=== PATIENT | female | born 2005 | race Caucasian/White ===

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

== ENCOUNTER 2025-01-07 12:26 | Outpatient (CLI) | payer OTHER, SELFPAY ==
--- OUTSIDE RECORDS SUMMARY | 2024-11-24 07:44 | XMS_ITS | Encounter Summary ---
Author Organization [facility] Address [address] [phone] Care Team Providers Care Electromedical Service Engineer Name Role Phone Miles Ashraf MD Primary Care Provider + [phone] Reason for Referral * Diagnostic Imaging (Routine) - Closed Specialty Diagnoses / Procedures Referred By Contac t Referred To Contact Radiology Diagnoses Maternal care for poor growth in third trimester, single or unspecified fetus Procedures [facility] Diagnostic [place] Veronika Thacker MD [address] [place] [address] Phone: tel: fax: [facility] PER DIAG [facility] [address] [place] [address] Phone: tel: Referral ID Status Reason Start Date Expiration Date Visits Re quested Visits Authorized [id number] Closed 11/08/2024 02/07/2026 1 1 Reason for Visit * Diagnostic Imaging (Routine) - Closed Specialty Diagnoses / Procedures Referred By Contac t Referred To Contact Radiology Diagnoses Maternal care for poor growth in third trimester, single or unspecified fetus Procedures [facility] Diagnostic [place] Veronika Thacker MD [address] [facility] [address] [place] [address] Phone: tel: fax: [facility] PER DI[facility] [address] [place] [address] Phone: tel: Referral ID Status Reason Start Date Expiration Date Visits Re quested Visits Authorized [id number] Closed 11/08/2024 02/07/2026 1 1 Encounter Details Date Type Department Care Team (Late st Contact Info) Description 11/24/2024 7:44 AM EDT - 11/24/2024 11:59 PM EDT Hospital Encounter [facility] [address] [place] [phone] Veronika Thacker MD [address] [facility] [address] [place] [address] Maternal care for poor growth in third [...] Procedure Name Priority Date/Time Associated Diagnosis Comments [facility] Routine 11/24/2024 8:20 AM EDT Maternal care for poor growth in third trimester, single or unspecified fetus documented in this encounter Results * Replaced by [facility] (11/24/2024 8:20 AM EDT) Anatomical Region Laterality Modality Ultrasound 11/24/2024 7:53 AM EDT Narrative 11/24/2024 8:44 AM EDT PAT NAME: TALI RAMEY MED REC#: [id number] DA: 2005 PAT GEND: F PAT TYPE: O EXAM PHI: [id number] REF PHYS CHIRAG BRANNON Comparison Studies The [...] EFW (oz) 12 oz EFW by: Hadlock ([id number]-OY-FL) Extended Cav. septi pel. tr 4.5 mm Dope House Operator Helper 5.6 mm CM 4.7 mm 2% Nicolaides [...] Normal Heart / Thorax 3-vessel view: Normal 6-nspatc-hjyyqwb view: normal Stomach: Appears normal Kidneys: Appears [...] Recommend 37 week delivery. Coding ======= Description: 76443-53 Follow Up Ultrasound Description: 47737-32 BPP without NST Description: 29341-87 Doppler Umbilical Artery Carrier Blower: Angela Iniguez RDMS Physician: Clint Ponce MD, FACOG Electronically signed by: Clint Ponce MD, FACOG at: 08:44 Procedure Note Clint Ponce MD - 11/24/2024 PAT NAME: TALI RAMEY MED REC#: [id number] DA: 2005 PAT GEND: F PAT TYPE: O EXAM PHI: [id number] REF PHYS CHIRAG BRANNON Comparison Studies The findings of this study are compared to the prior ultrasound studydated 11/05/24. Patient Status Outpatient Indication ======== IUGR. Vapes. Maternal Assessment Alpcnv843 cm Height (ft)4 ft Height (in)11 in Mhaimi95 kg Weight (lb)92 lb BMI18.55 kg/m Method ======= Transabdominal ultrasound examination ========= Lai . Number of fetuses: 1 Dating ====== GA by prior bqbggcxnva71 w + 5 d DEMETRIA by prior [...] (lb)3 lb EFW (oz)12 oz EFW by:Hadlock (XAF-[id number]-TX-FL) Extended Cav. septi pel. tr4.5 mm Vp5.6 mm CM4.7 mm 2% Nicolaides Head / Face / Neck Cephalic index0.75 5% Nicolaides Extremities / Bony Struc FL / BPD0.81 FL / HC0.21 FL / AC0.22 Other Structures VBJ746 bpm General Evaluation Cardiac activity present. FHR [...] LVOT view:Normal Heart / Thorax 3-vessel view:Normal 8-zihnvo-iacesno view:normal Stomach:Appears normal Kidneys:Appears normal Bladder:Appears normal [...] 2 weeks. Recommend 37 weekdelivery. Coding ======= Description:05735-64 Follow Up Ultrasound Description:62811-56 BPP without NST Description:27573-51 Doppler Umbilical Artery Carrier Blower: Angela Iniguez RDMS Physician: Clint Ponce MD, FACOG Electronically signed by: Clint Ponce MD, FACOG at: 08:44 us Veronika Thacker MD IMG US ORDERABLES Final Result documented in this encounter Visit Diagnoses Diagnosis Maternal care for poor growth in third trimester, single or unspecified fetus documented in this encounter Care Teams Electromedical Service Engineer Relationship Specialty Start Date End Date Miles Ashraf MD [address] [place] [address] [address] [place] [address] PCP - General Adolescent Medicine 11/02/24 documented as of this encounter
--- OUTSIDE RECORDS SUMMARY | 2024-11-24 08:00 | XMS_ITS | Encounter Summary ---
Author Organization [facility] Address [address] [place] [address] Care Team Providers Care Hands Parter Name Role Phone Miles Ashraf MD Primary Care Provider [phone] Reason for Visit * Reason Comments IUGR Encounter Details Date Type Department Care Team ([facility] st Contact Info) Description 11/24/2024 8:00 AM EDT Office Visit [facility] MATERNAL MEDICINE [address] [place] [phone] Elier Ponce MD [address] [facility] [address] [place] [address] Maternal care for poor growth in third [...] [facility] Elier Ponce MD, FACOG Maternal Medicine, [facility] documented in this encounter Plan of Treatment Not on file documented as of this encounter Visit Diagnoses Diagnosis Maternal care for poor growth in third trimester, single or unspecified fetus- Primary documented in this encounter Care Teams Hands Parter Relationship Specialty Start Date End Date Miles Ashraf MD [address] [place] [address] [place] [address] PCP - General Adolescent Medicine 11/02/24 documented as of this encounter
--- OUTSIDE RECORDS SUMMARY | 2024-12-06 18:45 | XMS_ITS | Encounter Summary ---
Author Organization Healthcare Address [address] [place] [address] Care Team Providers Care Clinical Data Research Name Role Phone Miles Ashraf MD Primary Care Provider [phone] Reason for Visit * Auth/Cert (Routine) Specialty Diagnoses / Procedures Referred By Contac t Referred To Contact Diagnoses premature rupture of membranes (PPROM) with unknown onset of labor Marline Redding DO [address] [address] Phone: tel: fax: [facility] [address] [place] [address] Phone: tel: fax: Referral ID Status Reason Start Date Expiration Date Visits Re quested Visits Authorized [id number] 1 1 Encounter Details Date Type Department Care Team (Late st Contact Info) Description 12/06/2024 6:45 PM EDT - 12/09/2024 2:58 PM EDT Hospital Encounter [facility] [address] [place] [address] Marline Redding DO [address] [address] Axel Patino MD [address] [address] Discharge Disposition: Home or Self [...] any time in the past 12 m [facility], were you homeless or living in a residential (including now)? 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 0 12/06/2024 CAGE Questionnaire Score 0 025 Utilities Answer Date Recorded In the past 12 months has th e [employer], gas, oil, or water [employer] threatened to shut off services in your [...] returns to a pre- state. Call your REFERENCE LIBRARIAN or come to OB triage at [facility] if: You are having heavy vaginal bleeding requiring more than 2 maxipads in 1-hour You are having new onset of headaches, blurry vision, chest pain, shortness of air, significant legswelling. Fever (temperature >100.4 F) Severe abdominal pain, nausea/vomiting Difficulty with urination Follow-up recommendations: If you had any blood pressure problems during your or labor, you should have a follow-up with your REFERENCE LIBRARIAN in 1-week to check your blood pressure. You should have a visit with your REFERENCE LIBRARIAN scheduled in 6-weeks. documented in this encounter Medications at Time of Discharge acetaminophen (Tylenol) 325 MG tablet Take 2 tablets by mouth every 6 hours as needed for pain. Under [facility] law, monthly prescriptions (30 days) [...] capsule by mouth daily. 60 capsule 5 hydrOXYzine HCl (Atarax) 25 MG tablet Take [...] for nausea or vomiting. 20 tablet 5 ferrous sulfate 325 (65 Fe) MG tablet Take 1 tablet by mouth daily with breakfast. 30 tablet 5 01/10/20 25 acetaminophen (Tylenol) 325 MG tablet Take 2 tablets by mouth every 6 hours as needed for pain. Under [place] law, monthly prescriptions (30 days) can be [...] Randolph MD - 12/09/2024 2:01 PM EDT [facility] AN OB POSTANALGESIA NOTE: OB Post Analgesia [...] EDT Signature only. * Progress Notes - Krsytin Beckforddeanne Rodriguez - 12/09/2024 10:42 AM EDT Case Management Adult Initial Progress Note Tali Cope 19 y.o. 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 No Insurance: Primary Visit Coverage Payer Plan Sponsor Code Group Number Group Name [employer] MEDICAID [employer] [place] Primary Visit Coverage Subscriber Subscriber ID Subscriber Name Subscriber N Subscriber Address [id number] TALI COPE [id number] [place] [address] Patient information: Primary Caregiver: Self Accompanied by/Relationship: Pt's Fiance (Delmer Silva) and NB (Jeannine Silva) available at bedside as support. Support System: Immediate family, Friends Daily Living Activities: Functional Status: Independent Living Arrangements: Spouse/Significant other, Children Type of Residence: Private residence [address] [place] [address] Smoker in the Home?: No Current DME: [...] DME Provider: N/A Living Will/Advance Directive/Power of Delimber Operator /Guardian: Unable to assess: No Have you [...] No Social Connections: Unknown (03/01/2023) Received from [facility] Family and Community Support Help with Day-to-Day Activities: Not on file Lonely or Isolated: Not on file Alcohol Use: Low Risk (12/06/2024) CAGE ASSESSMENT Cage unable to access: Not on file Cage max number of drinks: Not on file Cage Beverages a week: Not on file Cage Questionnaire cut down: 0 Cage questionnaire annoyed: 0 Cage questionnaire guilty: 0 Cage questionnaire eye body component engineer: 0 Cage Overall score: 0 Tobacco Use: Low Risk (11/05/2024) Received from [facility] Patient History Smoking Tobacco Use: Never Smokeless Tobacco Use: Never Passive Exposure: Not on file Financial Resource Strain: Not on file Depression: Not at risk (08/10/2021) PHQ-2 PHQ-2 Score: 2 Depression: Low Risk (12/08/2024) Franklin Depression Scale Last EPDS Total Score: 3 [...] reports living with her fiance and NB ([place] Berylguilherme Silva) in [place], [place]. SW confirmed the family's demographic information [...] as needed prior to discharge. Julian Beckford, SHUTTLECOCK ASSEMBLER, TOWER TECHNICIAN * Hospital Course - Lenora Muniz - [...] a baby's chart. NBN Follow-up Consult Note [facility] Patient Name: Sammie Cope Date: 12/09/2024 [...] Center Initiated by: Reviewed by WILL BarclayC, [facility] Date Initiated: 12/08/24 Patient Follow-up: Follow-up Needed [...] from the original note were not included. 38831 Storing Expressed Milk You can express your milk and store it in clean containers. Your family or a sitter can feed it to the baby. This way, your baby gets the benefits of your milk even when you can't be there at feedingtime. The guidelines below are based on guidelines from the CDC and the [place] [employer] Pediatric[employer] (AAP). Type of storage [...] mouth. Last Reviewed Date: 2023 00:00:00 ?? [id number] [employer]. All rights reserved. This information is not intended as a substitute for professional medical care. Always follow your healthcare professional's instructions. * Marcus HernandezBRUNO - Colleen Sharma RN - 12/09/2024 7:51 AM EDT Images from the original note were not included. 00463 Understanding Depression It?s common to feel tired [...] An online chat option is alsoavailable at https://[employer]Medallia. Lifeline is free and available 10/12. To learn more Find more information at: ? [employer] at www..net ? Office on Women's Health at www.womenshealth.gov Last Reviewed Date: 2024 00:00:00 ?? [id number] [employer]. All rights reserved. This information is not [...] with a nurse. [facility] (Triage) [facility] [address] [place] [address] [facility] Medical Office Building [address], [address] [place], [place] [id number] [facility] [address] [place], [place] [id number] Family Practice [address], Third Floor [address] [place], [place] [address] [facility] [address] [place] [address] [facility] Obstetrics & Gynecology [place] [address] [place] [address] [facility]stetrics [facility] Gyne[facility] [place] [address] [place], [place] [id number] * Marcus Saenz - Colleen Sharma RN - 12/09/2024 7:50 AM EDT Images from the original note were not included. 65863 : Caring for Yourself When you have [...] healthcare provider before taking any prescription or mecw-zgl-lvpvfoe medicines, herbs,or supplements. Comfy clothes Suggestions for [...] . Last Reviewed Date: 2023 00:00:00 ?? 4591-3685 [employer]. All rights reserved. This information is not intended as a substitute for professional medical care. Always follow your healthcare professional's instructions. * Marcus Saenz - Colleen Sharma RN - 12/09/2024 7:50 AM EDT Images from the original note were not included. 88486 Breast Care After A few days after [...] nipples, consult your healthcare provider or a talent acquisition consultant. They will make sure that your baby's [...] freely Last Reviewed Date: 2023 00:00:00 ?? [id number] [employer]. All rights reserved. This information is not intended as a substitute for professional medical care. Always follow your healthcare professional's instructions. * Marcus OnIR - Colleen Sharma RN - 12/09/2024 7:50 AM EDT Images from the original note were not included. 476 Beginning to Breastfeed: Fvrd-qx-Mtys What is rgac-dr-iqca? After , your nurse will clean and dry your baby. Your baby will then be placed on your chest utve-nm-mnoy right away. Your baby?s shoulders should be [...] the first time. Your baby will stay bhrw-os-holq with you for as long as you like after . If you get too sleepy, let your nurse know. Only you or your partner can do wlqj-pv-wngu with your baby these first few hours. Visitors may come in, but you must not pass your baby around during this time. This could cause your baby to get cold and then sick. Posk-dc-csor is a great way to remind your [...] also lowers your risk of depression. Being hune-qv-ffzh with your baby can help reduce your [...] feeding. ? Placing your baby in the sdcu-xo-ssuf position on your chest. This can help [...] to latch on correctly. [facility] can help with any breast feeding problems after you go home. * Marcus OnFHIR - Colleen Sharma RN - 12/09/2024 7:50 AM EDT Images from the original note were not included. 52806 After Delivery: When to Call the Healthcare [...] weeks after discharge. * [facility] - Colleen Sharma RN - 12/09/2024 7:50 AM EDT Images from the original note were not included. 29238 After a Vaginal After having a baby, [...] and anus), an ice pack can help. Juda care While still in the hospital or [...] home. Last Reviewed Date: 2017 00:00:00 ?? 4751-4227 [employer]. All rights reserved. This information is not [...] Miles Ashraf MD [address] [facility] / [place] [address] Referring provider name and address: No referring [...] 6 hours as needed for pain. Under [place] law, monthly prescriptions(30 days) can be refilled [...] Your Medications These medications were sent to [facility] [address] [place] [address] [address] [address] acetaminophen 325 MG tablet docusate sodium 250 [...] Lady Pryor MD PGY-2, Obstetrics and Gynecology [facility] Cosigned by Edgardo Ardon MD [...] García MD - 12/08/2024 5:09 PM EDT [facility] AN OB POSTANALGESIA NOTE: OB Post Analgesia [...] a baby's chart. NBN Follow-up Consult Note [facility] Patient Name: Sammie Cope Date: 12/08/2024 Admission Date: 12/07/2024 Weight of : 2120 [...] Pryor MD - 12/08/2024 7:11 AM EDT [facility] Daily Progress Note S: No [...] Contraception: undecided # Status - Viable Female infant # FEN/Prophylaxis - REG/HLIV - SCD???s Dispo: Continue inpatient management/Anticipate discharge on PPD 2. Patient care staffed with [facility] Attending, Dr. Ardon. For any questions or concerns regarding this patient's care, please call OB resident workroom at #[phone]. Lady Pryor MD Obstetrics & Gynecology, PGY-1 [facility] Cosigned by Edgardo Ardon MD [...] Flowsheets (Taken 12/08/2024 0012) Pain Management Interventions: fhmtli-max-hawkc dosing utilized Goal: Effective Urinary Elimination Outcome: Ongoing, Progressing * Note - Adilene Jackson RN - 12/07/2024 4:30 PM EDT This note was copied from a baby's chart. NBN Initial Consult Note [facility] Patient Name: Sammie Cope Date: 12/07/2024 Admission Date: 12/07/2024 Weight of : 2120 g Percent Weight Change Since : 0% Consultation: Reason for Consult: Initial assessment, Late LC to Mother's bedside to offer assistance [...] pump after I feed. Breast Pump: [facility] (Spectra and wearable Lansinoh breast pumps [...] Spontaneous ROM to Delivery Time: 2h 47m Juda Sex: Female Weight: 2120 g 1 Minute 5 Minute 10 Minute Totals: 9 9 Sammie Cope [[id number]] Delivery Providers Delivering clinician: Axel Patino MD Provider Role Sarah York MD Delivery Assist Paula Patino RN Delivery Nurse Jackie Blank MD Resident PGY-4 Eliane Hook, RN Registered Nurse Sofía Lee Scrub Nurse Delivery Details: Tali Cope, filomena 19 y.o. female delivered a viable Female with Apgars of 9 and 9 . Delivery was via Vaginal, Spontaneous with Epidural anesthesia. delivered in Vertex Right Occiput Anterior position. Anterior and posterior shoulders delivered without difficulty. After delayed cord clamping, the cord was clamped twice, cut and 3 vessels were noted. Intact placenta delivered at 12/07/2024 1:29 PM. Placental disposition was discarded. Fundal massageperformed and fundus found to be firm. Perineum, vagina, cervix were inspected, and the following lacerations were noted: Sammie Cope [[id number]] Lacerations Episiotomy: None Periurethral laceration?: Yes Periurethral [...] at 28 weeks as a [facility] from [facility] for concern for labor, short cervix and growth restriction. CE at that time was /-3. She received IR nifed and ANCS. On HD2 formal US revealed normal growth and a CL of 7mm. She follows with [facility] for her FGR. They suspect that this [...] mg, Oral, Every 4 hours PRN, Under [place] law, monthly prescriptions (30 days) can be [...] of labor. Please contact first-call provider on [employer] Secure Chat for questions or concerns. For emergencies [place] [phone]. Leonora Sun MD PGY-3 Obstetrics & Gynecology [...] Hold for add-ons 12/08/2024 8:03 AM EDT [facility] Comment:Auto resulted. Blood Venous blood specimen / Unknown 12/08/2024 4:40 AM EDT 12/08/2024 5:07 AM EDT us Axel Patino MD LAB BLOOD ORDERABLES Yasmin l Result Performing Organization Address [facility]/ZIP Co de Phone Number [facility] [address] [place] [address] * Hemoglobin and hematocrit, blood, AM Lab (12/08/2024 4:40 AM EDT) HGB 11.7 11.2 - 15.7 g/dL LAB HEMATOLOGY METHOD 12/08/2024 5:05 AM EDT [facility] HCT 35.3 34.0 - 45.0 % LAB HEMATOLOGY METHOD 12/08/2024 5:05 AM EDT [facility] Blood Venous blood specimen / Unknown Venipuncture / Unknown 12/08/2024 4:40 AM EDT 12/08/2024 4:55 AM EDT us Marline Gonzalezco DO LAB BLOOD ORDERABLES Final R esult Performing Organization Address [facility] Co de Phone Number [facility] [address] [place] [address] * Urine Culture (12/06/2024 7:09 PM EDT) Culture No growth at day 1 12/07/2024 3:07 PM EDT [facility] Urine Urine specimen from urinary conduit / Unknown Non-blood Collection / Unknown 12/06/2024 7:09 PM EDT 12/06/2024 7:27 PM EDT us Marline Quezada Miladis DO LAB MICROBIOLOGY - GENERAL O RDERABLES Final Result Performing Organization Address City/[facility] Co de Phone Number [facility] [address] [place] [address] * (ABNORMAL) Urinalysis with reflex microscopic (12/06/2024 7:09 PM EDT) Color, Urine Yellow LAB URINALYSIS - AUTOMATED METHOD 12/06/2024 7:23 PM EDT [facility] Clarity, Urine Clear LAB URINALYSIS - AUTOMATED METHOD 12/06/2024 7:23 PM EDT [facility] Spec Harriet, Urine 1.006 1.005 - 1.030 LAB URINALYSIS - AUTOMATED METHOD 12/06/2024 7:23 PM EDT [facility] pH, Urine 7.0 5.0 - 8.0 LAB URINALYSIS - AUTOMATED METHOD 12/06/2024 7:23 PM EDT [facility] Protein, Urine Negative Negative mg/dL LAB URINALYSIS - AUTOMATED METHOD 12/06/2024 7:23 PM EDT [facility] Glucose, Urine Negative Negative mg/dL LAB URINALYSIS - AUTOMATED METHOD 12/06/2024 7:23 PM EDT [facility] Ketones, Urine 15(A) Negative mg/dL LAB URINALYSIS - AUTOMATED METHOD 12/06/2024 7:23 PM EDT [facility] Blood, Urine Negative Negative LAB URINALYSIS - AUTOMATED METHOD 12/06/2024 7:23 PM EDT [facility] Bilirubin, Urine Negative Negative LAB URINALYSIS - AUTOMATED METHOD 12/06/2024 7:23 PM EDT [facility] Urobilinogen, Urine 0.2 0.2 to 1.0 mg/dL LAB URINALYSIS - AUTOMATED METHOD 12/06/2024 7:23 PM EDT [facility] Leukocytes, Urine Negative Negative LAB URINALYSIS - AUTOMATED METHOD 12/06/2024 7:23 PM EDT [facility] Nitrite, Urine Negative Negative LAB URINALYSIS - AUTOMATED METHOD 12/06/2024 7:23 PM EDT [facility] Urine Urine specimen from urinary conduit / Unknown Non-blood Collection / Unknown 12/06/2024 7:09 PM EDT 12/06/2024 7:17 PM EDT us Marline Redding DO LAB URINE ORDERABLES Final R esult [facility] [address] [place] [address] * Rubella Antibody IgG (12/06/2024 7:06 PM EDT) Rubella Antibody IgG Equivocal Negative 12/07/2024 10:56 AM EDT [facility] Comment: Rubella IgG Result Interpretation: Negative: [...] EDT 12/06/2024 7:17 PM EDT Marline A [employer] DO LAB BLOOD ORDERABLES Final R esult Performing Organization Address City/[facility]/ZIP Co de Phone Number [facility] [address] [place] [address] * Hepatitis B surface antigen (12/06/2024 7:06 PM EDT) Pathologist [facility] Hepatitis B Surf Antigen Negative Negative 12/06/2024 8:52 PM EDT [facility] Blood Venous blood specimen / Unknown Venipuncture / Unknown 12/06/2024 7:06 PM EDT 12/06/2024 7:17 PM EDT Marline A Miladis DO LAB BLOOD ORDERABLES Final R esult [facility] [address] [place] [address] * (ABNORMAL) CBC and differential (12/06/2024 7:06 PM EDT) Pathologist [facility] WBC Count 14.26(H) 3.70 - 10.30 10*3/uL LAB HEMATOLOGY METHOD 12/06/2024 7:24 PM EDT [facility] RBC Count 3.65(L) 3.90 - 5.20 10*6/uL LAB HEMATOLOGY METHOD 12/06/2024 7:24 PM EDT [facility] HGB 12.2 11.2 - 15.7 g/dL LAB HEMATOLOGY METHOD 12/06/2024 7:24 PM EDT [facility] HCT 34.3 34.0 - 45.0 % LAB HEMATOLOGY METHOD 12/06/2024 7:24 PM EDT [facility] Platelet Count 235 155 - 369 10*3/uL LAB HEMATOLOGY METHOD 12/06/2024 7:24 PM EDT [facility] MCV 94 79 - 98 fL LAB HEMATOLOGY METHOD 12/06/2024 7:24 PM EDT [facility] MCH 33.4(H) 26.0 - 32.0 pg LAB HEMATOLOGY METHOD 12/06/2024 7:24 PM EDT [facility] MCHC 35.6(H) 30.7 - 35.5 g/dL LAB HEMATOLOGY METHOD 12/06/2024 7:24 PM EDT [facility] RDW 12.1 11.5 - 14.5 % LAB HEMATOLOGY METHOD 12/06/2024 7:24 PM EDT [facility] MPV 10.3 8.8 - 12.5 fL LAB HEMATOLOGY METHOD 12/06/2024 7:24 PM EDT [facility] nRBC 0.0 <=0.0 per 100 WBCs LAB HEMATOLOGY METHOD 12/06/2024 7:24 PM EDT [facility] Differential Type Automated LAB HEMATOLOGY METHOD 12/06/2024 7:24 PM EDT [facility] Neutrophils % 79 % LAB HEMATOLOGY METHOD 12/06/2024 7:24 PM EDT [facility] Lymphocytes % 13 % LAB HEMATOLOGY METHOD 12/06/2024 7:24 PM EDT [facility] Monocytes % 6 % LAB HEMATOLOGY METHOD 12/06/2024 7:24 PM EDT [facility] Eosinophils % 1 % LAB HEMATOLOGY METHOD 12/06/2024 7:24 PM EDT [facility] Basophils % 0 % LAB HEMATOLOGY METHOD 12/06/2024 7:24 PM EDT [facility] Immature Granulocytes % 1 % LAB HEMATOLOGY METHOD 12/06/2024 7:24 PM EDT [facility] Neutrophils Absolute 11.23(H) 1.60 - 6.10 10*3/uL LAB HEMATOLOGY METHOD 12/06/2024 7:24 PM EDT [facility] Lymphocytes Absolute 1.85 1.20 - 3.90 10*3/uL LAB HEMATOLOGY METHOD 12/06/2024 7:24 PM EDT [facility] Monocytes Absolute 0.89 0.30 - 0.90 10*3/uL LAB HEMATOLOGY METHOD 12/06/2024 7:24 PM EDT [facility] Eosinophils Absolute 0.11 0.00 - 0.50 10*3/uL LAB HEMATOLOGY METHOD 12/06/2024 7:24 PM EDT [facility] Basophils Absolute 0.05 0.00 - 0.10 10*3/uL LAB HEMATOLOGY METHOD 12/06/2024 7:24 PM EDT [facility] Immature Granulocytes Absolute 0.13(H) 0.00 - 0.06 10*3/uL LAB HEMATOLOGY METHOD 12/06/2024 7:24 PM EDT [facility] Blood Venous blood specimen / Unknown Venipuncture / Unknown 12/06/2024 7:06 PM EDT 12/06/2024 7:17 PM EDT Narrative [facility] - 12/06/2024 7:24 PM EDT Therapeutic decision making should be based on absolute values, rather than percentages. us Marline Redding DO LAB BLOOD ORDERABLES Final R esult [facility] [address] [place] [address] * Treponema Pallidum (Syphilis) Antibodies with Reflex to RPR and RPR Titer (Those with NO known Syphilis) (12/06/2024 7:06 PM EDT) Syphilis Antibody (IgG+IgM) Nonreactive Nonreactive 12/06/2024 8:52 PM EDT [facility] Comment:Nonreactive. No sero logic evidence of syphilis. No follow-up necessary unless clinically indicated (e.g., early syphilis). Blood Venous blood specimen / Unknown Venipuncture / Unknown 12/06/2024 7:06 PM EDT 12/06/2024 7:17 PM EDT Marline Filomena Miladis DO LAB BLOOD ORDERABLES Final R esult Performing Organization Address City/[facility]/ZIP Co de Phone Number [facility] [address] [place] [address] * (ABNORMAL) OB Panel Pre-Eclampsia, only if hypertensive (12/06/2024 7:06 PM EDT) Uric Acid, Plasma 3.0(L) 3.1 - 7.1 mg/dL 12/06/2024 7:46 PM EDT [facility] Creatinine, Plasma 0.33(L) 0.60 - 1.10 mg/dL 12/06/2024 7:46 PM EDT [facility] ALT, Plasma 9(L) 10 - 35 U/L 12/06/2024 7:46 PM EDT [facility] AST, Plasma 19 10 - 35 U/L 12/06/2024 7:46 PM EDT [facility] LDH, Plasma 196 116 - 250 U/L 12/06/2024 7:46 PM EDT [facility] eGFRcr 153.4 mL/min/1.7 3m*2 12/06/2024 7:46 PM EDT [facility] Comment:Reported eGFRcr in m L/min/1.73m2 is based the CKD-EPI 2020 equation that does not use a race coefficient. Blood Venous blood specimen / Unknown Venipuncture / Unknown 12/06/2024 7:06 PM EDT 12/06/2024 7:17 PM EDT us Marline Quezada Miladis DO LAB BLOOD ORDERABLES Final R esult [facility] [address] [place] [address] * Type and Screen (12/06/2024 7:06 PM [...] ORDERABL ES Final Result BLOOD BANK [address] documented in this encounter Visit Diagnoses [...] documented as of this encounter Care Teams Clinical Data Research Relationship Specialty Start Date End Date Miles Ashraf MD [address] [place] [address] [place] [address] PCP - General 09/30/20 documented as of this encounter
--- OUTSIDE RECORDS SUMMARY | 2024-12-07 01:01 | XMS_ITS | Encounter Summary ---
Author Organization Healthcare Address [address] [place] [address] Care Team Providers Care Radio Program Checker Name Role Phone Miles Ashraf MD Primary Care Provider + [phone] Reason for Visit * Auth/Cert (Routine) Specialty Diagnoses / Procedures Referred By Contac t Referred To Contact Diagnoses premature rupture of membranes (PPROM) with unknown onset of labor Marline Redding, DO [address] [address] Phone: tel: fax: [facility] [address] [place] [phone] Phone: tel: fax: Referral ID Status Reason Start Date Expiration Date Visits Re quested Visits Authorized [id number] 1 1 Encounter Details Date Type Department Care Team (Late st Contact Info) Description 12/07/2024 1:01 AM EDT Anesthesia Event [facility] [address] [place] [address] Jose Cortez, DO [address] [place] [address] Anesthesia Record Procedure Summary Procedure Name Responsible Anesthesiologist Anesthesia Start Time Anesthesia Stop Time Labor Consult Events No events on file. Meds * Agents No agents on file. * Blood No blood administrations on file. Lines, Drains, and Airways No LDAs on file. documented in this encounter Social History Tobacco Use Types Packs/Day Years Used Date Smoking Tobacco: Never Smokeless Tobacco: Never Alcohol Use Standard Drinks/Week Comments Never 0 (1 standard drink = 0.6 oz pur e alcohol) PHQ-2 Answer Date Recorded Patient Health Questionnaire-2 Score 2 08/10/2021 [place] Depression Scale Answer Date Recorded [place] Depression Scale Total 3 12/08/2024 The thought [...] drink first t diandra in the morning (EYE-PRINTED CIRCUIT BOARDS CONTACT PRINTER) to steady your nerves or to get rid of a hangover? 0 12/06/2024 CAGE Questionnaire Score 0 025 Comments Yes Sex and Gender Information Value Date Recorded Sex Assigned at Not on file Legal Sex Female 8:57 PM EDT Gender Identity Not on file Sexual Orientation Not on file documented as of this encounter Functional Status * Calculated C-SSRS Risk Score (Lifetime/Recent) Answer Date of Assessment Author No Risk Indicated 12/06/2024 6:54 PM EDT Marline Caro RN * Question Answer Date of Assessment Author 1. Wish to be (Past 1 Month) No 025 6:54 PM EDT Marline Caro RN 2. Non-Specific Active Suici cristine Thoughts (Past 1 Month) No 12/06/2024 6:54 PM EDT Marline Caro RN 6. Suicidal Behavior (Lifetime) No 6:54 PM EDT Marline Caro RN documented as of this encounter Miscellaneous Notes * Anesthesia IP Labor Consult - Jose Cortez DO - 12/06/2024 9:51 PM EDT Patient: Abbe Ramey Procedure Information Date: 12/06/24 Procedure: Labor Consult Ms. Ramey is a 19 year old F who presents at 35w3d with PPROM and now IOL. Her only obstetric history with this is IUGR (EFW 2nd percentile). She denies any history of asthma, HTN,bleeding/clotting disorders, musculoskeletal disorders, or back surgeries. She denies taking any blood thinners. She does report a history of tachycardia and palpitations at baseline, for which she saw a peds compliance investigator in the past. She wore a holter monitor without any clear underlying cause. She does have a history of prior eating disorder requiring hospitalization in the past. 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 Current Obstetric History (-) history of DVT OB History 2 Para Term AB 1 Living SAB 1 IAB Ectopic Multiple Live Births Social History Socioeconomic History Marital status: Significant Other Spouse name: Not on file Number of children: 0 Years of education: in 10th grade Highest education level: Not on file Occupational History Not on file Tobacco Use Smoking status: Never Smokeless tobacco: Never Vaping Use Vaping status: Some Days Substances: Nicotine Devices: Pre-filled or refillable cartridge, Refillable tank Substance and Sexual Activity Alcohol use: Never Drug use: Never Sexual activity: Yes Partners: Male control/protection: OCP Comment: Patient states she was taking OCPs when she conceived Other Topics Concern Not on file Social History Narrative Lives with grandmother, stepfather. Household includes: sister Occasional caffeine consumption. Social Drivers of Health Financial Resource Strain: Not on file Food Insecurity: Not on file Transportation Needs: Not on file Physical Activity: Not on file Stress: Not on file Social Connections: Unknown (03/01/2023) Received from [facility] Family and Community Support Help with Day-to-Day Activities: Not on file Lonely or Isolated: Not on file Intimate Partner Violence: Unknown (03/01/2023) Received from [facility] Abuse Screen Unsafe at Home or Work/School: Not on file Feels Threatened by Someone?: Not on file Does Anyone Keep You from Contacting Others or Doint Things Outside the Home?: Not on file Physical Sign of Abuse Present: Not on file Housing Stability: Unknown (03/01/2023) Received from [facility] Housing Stability Current Living Arrangements: Not on file Potentially Unsafe Housing Conditions: Not on file Labs in last 18 hours CBC WBC 14.26 (H) Hb 12.2 Plt 235 Hct 34.3 ANC 11.23 (H) INR ??, PTT ??, Anti-Xa ?? BMP Na ?? Cl ?? BUN ?? Glu ?? K ?? Co2 ?? Cr 0.33 (L) Ca ?? iCa ?? Mg ??, Phos ?? Lactate ?? LFT AST 19 AlkPhos ?? T Prot ?? ALK 9 (L) Bili ?? Alb ?? D.Bili ?? Relevant Problems No relevant active problems Clinical information reviewed: Allergies ROS Anesthesia: Does not have history of previous anesthesia. Cardiovascular: Does not have angina. no hypertension: Does not have chest pain. Cardio additional comments: Prior history of palpitations and tachycardia. . Respiratory: no asthma: no COPD: Respiratory ROS additional comments: Vapes HEENT: Does not have chipped teeth, loose teeth or missing teeth. Neurological: no seizures: Did not have a cerebrovascular accident. Musculoskeletal: Does not have cervical spine limited mobility. Gastrointestinal: GERD:Does not have cirrhosis. Genitourinary: Does not have renal disease. Hematological/Lymphatic: History of no DVT. History of no pulmonary embolism. Endocrine/Metabolic: does not have diabetes mellitus. Does not have thyroid disorder. Physical Exam Airway Mallampati: II Mouth opening: normal TM distance: >3 FB Neck ROM: full Cardiovascular Rhythm: regular Rate: tachycardia Dental - normal exam Pulmonary Breath sounds clear to auscultation Neurological Oriented: normal to time, normal to place and normal to person Skin Skin: warm and dry Musculoskeletal Extremities Anesthesia Plan ASA 2 Anesthesia technique(s) discussed with the patient/family: CSE, DPE, epidural, general, regional and spinal Anesthetic plan and risks discussed with patient. Use of blood products discussed with patient who consented to blood products. Additional Equipment Requests documented in this encounter Plan of Treatment Not on file documented as of this encounter Visit Diagnoses Not on filedocumented in this encounter Additional Health Concerns Assessment Noted Time PHQ-9 Depression Total Score: 8 08/11/19 22 6:26 PM EDT A Body Mass Index follow-up plan has been documented for the patient 12/09/2024 2:30 PM EDT documented as of this encounter Care Teams Radio Program Checker Relationship Specialty Start Date End Date Miles Ashraf MD [address] [place] [address] [place] [address] PCP - General 09/30/20 documented as of this encounter
--- OUTSIDE RECORDS SUMMARY | 2024-12-07 04:18 | XMS_ITS | Encounter Summary ---
Author Organization Healthcare Address [address] [place] [address] Care Team Providers Care Service Electrician Name Role Phone Miles Ashraf MD Primary Care Provider [phone] Reason for Visit * Auth/Cert (Routine) Specialty Diagnoses / Procedures Referred By Contac t Referred To Contact Diagnoses premature rupture of membranes (PPROM) with unknown onset of labor Marline Redding, DO [address] [facility] [address] [place] [address] Phone: tel: fax: [facility] [address] [place] [phone] Phone: tel: fax: Referral ID Status Reason Start Date Expiration Date Visits Re quested Visits Authorized [id number] 1 1 Encounter Details Date Type Department Care Team (Late st Contact Info) Description 12/07/2024 4:18 AM EDT Anesthesia Event [facility] [address] [place] [address] Zuri Correa MD [address] [place] [phone] Jose Cortez DO [address] [place] [id number] Anesthesia Record Procedure Summary Procedure Name Responsible Anesthesiologist Anesthesia Start Time Anesthesia Stop Time Labor Analgesia Zuri Correa MD 12/07/24 0418 11/18 06/13 1324 Events Date Time Event Comment 12/07/2024 0418 An Start The patient was reevaluated immediately before sedation and remains eligible for anesthesia plan. 0425 Epidural Placed 0500 Face Time Patient resting comfortably in bed. T10 level bilaterally. 0616 Face Time Resting comfort ably 0703 Attending Handoff 1127 Face Time Patient with so me discomfort on the left side. Automatic bolus increased from 6mL to 7mL, encouraged to hit button at this time. Patient nauseous, normotensive. 1235 Face Time Some discomfort on the L side despite position change. Level around T11 on L. Additional bolus given. 1324 An Stop 1459 Epidural Catheter Removed 1459 Handoff to Receiving I compl eted my handoff to the receiving clinician during which we: 1. Identified the patient 2. Identified the responsible provider 3. Reviewed the pertinent medical history 4. Discussed the surgical course 5. Reviewed intra-op anesthesia management and issues during anesthesia 6. Set expectations for post-procedure period 7. Allowed opportunity for questions and acknowledgement of understanding. Meds Name Total bupivacaine 0.125% epidural bolus 8 mL lidocaine-EPINEPHrine (XYLOCAINE W/EPI) 1.5 %-1:545391 3 mL fentanyl + bupivacaine clinician bolus d ose 1-5 mL 0 mL * Agents No agents on file. * Blood No blood administrations on file. Lines, Drains, and Airways Type Details Placement Removal Peripheral IV Placement Date: 12/06/24; Placement Time: 1955; Existing LDA Placed by: Outside Facility; Catheter Size: 20 G; Orientation: Anterior, Left; Location: Forearm; Removal Date: 12/08/24; Removal Time: 909; Removal Reason: Other (Comment) (unable to flush) 12/06/241955 by Caleb Amador RN 12/08/24909 by Sheridan Hill RN Epidural Placement Date: 12/07/24; Placement Time: 417 (created via procedure documentation); Removal Date: 12/07/24; Removal Time: 145812/07/24417 by Jose Cortez DO 12/07/241458 by Efrem Szymanski MD Epidural Placement Date: 12/07/24; Placement Time: 428; Inserted by: jose anesthesia; Location: Thoracic (1-12); Patient Tolerance: Tolerated well; Removal Date: 12/07/24; Removal Time: 14512/07/24428 by Caleb Amador RN 12/07/241458 by Efrem Szymanski MD Urethral Catheter Placement Date: 12/07/24; Placement Time: 05; Inserted by: Peyton Amador RN; Balloon Size: 10 mL; Urine Returned: Yes; Removal Date: 12/07/24; Removal Time: 131; Removal Reason: Per protocol 12/07/24 0530 by Caleb Amador RN 12/07/24 1310 by Paula Patino RN Peripheral IV Placement Date: 12/07/24; Placement Time: 07; Catheter Size: 18 G; Orientation: Anterior, Proximal, Right; Location: Forearm; Technique: Ultrasound guidance; Inserted by: Dr. 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 0 12/06/2024 CAGE Questionnaire Score 0 025 Comments No Sex and Gender Information Value Date Recorded Sex Assigned at Not on file Legal Sex Female 8:57 PM EDT Gender Identity Not on file Sexual Orientation Not on file documented as of this encounter Functional Status * Calculated C-SSRS Risk Score (Lifetime/Recent) Answer Date of Assessment Author No Risk Indicated 12/07/2024 12:00 PM EDT Paula Krishna RN * Question Answer Date of Assessment Author 1. Wish to be (Past 1 Month) No 025 12:00 PM EDT Paula Patino RN 2. Non-Specific Active Suici cristine Thoughts (Past 1 Month) No 12/07/2024 12:00 PM EDT Yvette Patino RN 6. Suicidal Behavior (Lifetime) No 12:00 PM EDT Paula Patino RN documented as of this encounter Miscellaneous Notes * Anesthesia Postprocedure Evaluation - Efrem Szymanski MD - 12/07/2024 2:59 PM EDT Patient: Abbe Ramey Anesthesia Type: DPE, epidural Vitals Value Taken Time BP 120/78 12/07/24 14:44 Temp See RN flowsheet 12/07/24 14:59 Pulse 88 12/07/24 14:44 Resp 15 12/07/24 14:59 SpO2 99 % 12/07/24 14:59 Vitals shown include unfiled device data. Anesthesia Post Evaluation Patient location during evaluation: PACU Patient participation: complete - patient participated Level of consciousness: awake Pain management: adequate (pain score 0-3) Airway patency: natural airway Cardiovascular status: acceptable and hemodynamically stable Respiratory status: acceptable and room air Hydration status: acceptable Nausea/Vomiting: No Comments: Epidural catheter removed with tip intact. No notable events documented. Cosigned by Zuri oCrrea MD at 12/07/2024 4:36 PM EDT Associated attestation - Zuri Correa MD - 12/07/2024 4:36 PM EDT I agree with the findings and care plan documented in the postprocedure evaluation note. * Anesthesia Procedure Notes - Jose Cortez, - 12/07/2024 4:44 AM EDT Associated Order(s): Epidural Block Epidural Block Patient location during procedure: OB Start time: 12/07/2024 4:18 AM End time: 12/07/2024 4:33 AM Reason for block: labor analgesia Staffing Performed: Resident Anesthesiologist: Bret Bose MD Resident: Jose Cortez DO Preanesthetic Checklist Completed: patient identified, IV checked, site marked, risks and benefits discussed, surgical consent, monitors and equipment checked, pre-op evaluation and timeout performed Block Placement Patient position: sitting Prep: ChloraPrep and site prepped and draped Patient monitoring: heart rate and continuous pulse ox Approach: midline Location: lumbar (1-5) Needle Needle type: Tuohy Needle gauge: 17 G Needle length: 3.5 in Needle insertion depth: 4 cm Catheter size: 19 G Catheter at skin depth: 9 cm Test dose: negative and lidocaine 1.5% with epinephrine 1-to-200,000 Medications Administered lidocaine-EPINEPHrine (XYLOCAINE W/EPI) 1.5 %-1:630543 - Epidural 3 mL - 12/07/2024 4:27:00 AM Additional Notes After identification of superficial landmarks the skin was prepped with Dura- Prep. Sterile drape placed. Skin anesthetized with 1% lidocaine. Tuohy needle then inserted and directed anteriorly with ESTRELLA at 4 cm. DPE performed with return of clear CSF. Catheter threaded easily and inserted 5 cm into the space. Secured at the skin with lock-it device, tegaderm, and cloth tape. Tested with 1.5% lidocaine with 1:200k epi 3 cc negative for IV or SA dose. Cosigned by Bret Bose MD at 12/07/2024 5:05 AM EDT Associated attestation - Bret Bose MD - 12/07/2024 5:05 AM EDT I was present during all critical and balderas portions of the procedure(s) and immediately available [facility] services the entire duration. See resident note for details. * Anesthesia Preprocedure Evaluation - Jose Cortez DO - 12/07/2024 4:03 AM EDT Patient: Abbe Ramey Procedure Information Date: [...] baseline, for which she saw a peds functional consultant in the past. She wore a holter monitor without any clear underlying cause. She does have a history of prior eating disorder requiring hospitalization in the past. 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 (-) history of [...] file Social Connections: Unknown (03/01/2023) Received from [facility] Family and Community Support Help with Day-to-Day Activities: Not on file Lonely or Isolated: Not on file Intimate Partner Violence: Unknown (03/01/2023) Received from [facility] Abuse Screen Unsafe at Home or Work/School: Not on file Feels Threatened by Someone?: Not on file Does Anyone Keep You from Contacting Others or Doint Things Outside the Home?: Not on file Physical Sign of Abuse Present: Not on file Housing Stability: Unknown (03/01/2023) Received from [facility] Housing Stability Current Living Arrangements: Not on [...] CSE, DPE, epidural, general, regional and spinal Anesthesia plan agreed upon was: DPE and epidural Anesthetic plan and risks discussed with patient. Use of blood products discussed with patient who consented to blood products. Additional Equipment Requests Cosigned by Bret Bose MD at 12/07/2024 4:28 AM EDT Associated attestation - Bret Bose MD - 12/07/2024 4:28 AM EDT I agree with the findings and care plan documented in the preprocedure evaluation note. documented in this encounter Plan of Treatment Not on file documented as of this encounter Procedures Procedure Name Priority Date/Time Associated Diagnosis Comments ANESTHESIA EPIDURAL BLOCK Routine 12/07/2024 4:18 AM EDT documented in this encounter Results * Epidural Block (12/07/2024 4:18 AM EDT) Narrative Bret Bose MD - 12/07/2024 4:18 AM EDT Bret Bose MD 12/07/2024 5:05 AM Epidural Block Patient location during procedure: OB Start time: 12/07/2024 4:18 AM End time: 12/07/2024 4:33 AM Reason for block: labor analgesia Staffing Performed: Resident Anesthesiologist: Bret Bose MD Resident: Jose Cortez DO Preanesthetic Checklist Completed: patient identified, IV checked, site marked, risks and benefits discussed, surgical consent, monitors and equipment checked, pre-op evaluation and timeout performed Block Placement Patient position: sitting Prep: ChloraPrep and site prepped and draped Patient monitoring: heart rate and continuous pulse ox Approach: midline Location: lumbar (1-5) Needle Needle type: Tuohy Needle gauge: 17 G Needle length: 3.5 in Needle insertion depth: 4 cm Catheter size: 19 G Catheter at skin depth: 9 cm Test dose: negative and lidocaine 1.5% with epinephrine 1-to-200,000 Medications Administered lidocaine-EPINEPHrine (XYLOCAINE W/EPI) 1.5 %-1:755384 - Epidural 3 mL - 12/07/2024 4:27:00 AM Additional Notes After identification of superficial landmarks the skin was prepped with Dura-Prep. Sterile drape placed. Skin anesthetized with 1% lidocaine. Tuohy needle then inserted and directed anteriorly with ESTRELLA at 4 cm. DPE performed with return of clear CSF. Catheter threaded easily and inserted 5 cm into the space. Secured at the skin with lock-it device, tegaderm, and cloth tape. Tested with 1.5% lidocaine with 1:200k epi 3 cc negative for IV or SA dose. Bret Bose MD ANESTHESIA ORDERABLES Final Re sult documented in this encounter Visit Diagnoses Not on filedocumented in this encounter Administered Medications Inactive Administered Medications - up to 3 most recent administrations Medication Order MAR Action Action Date Dose Rate Site bupivacaine 0.125% (pf epidural bolus Epidural, As needed, Starting on Sat12/07/24 at 0433, Until Sat12/07/24 at 1328, Routine, Anesthesia Intraprocedure Given 12/07/2024 4:33 AM EDT 8 mL lidocaine-EPINEPHrine (PF) (Xylocaine W/EPI) 1.5 %-1:227254 injection Epidural, Once PRN Procedure, Starting on Sat12/07/24 at 0427, Until Sat12/07/24 at 0427, Routine, Anesthesia Intraprocedure Given 12/07/2024 4:27 AM EDT 3 mL documented in this encounter Additional Health Concerns Assessment Noted Time PHQ-9 Depression Total Score: 8 08/11/19 22 6:26 PM EDT A Body Mass Index follow-up plan has been documented for the patient 12/09/2024 2:30 PM EDT documented as of this encounter Care Teams Service Electrician Relationship Specialty Start Date End Date Miles Ashraf MD [address] [place] [address] [place] [id number] PCP - General 09/30/20 documented as of this encounter
--- OUTSIDE RECORDS SUMMARY | 2025-01-11 12:29 | XMS_ITS | Encounter Summary ---
Author Organization Healthcare Address [address] [place] [address] Care Team Providers Care Windows Server Engineer Name Role Phone Miles Ashraf MD Primary Care Provider [phone] Encounter Details Date Type Department Care Team [...] drink first t diandra in the morning ([employer]) to steady your nerves or to get [...] documented as of this encounter Care Teams Windows Server Engineer Relationship Specialty Start Date End Date Miles Ashraf MD [address] [place] [address] [place] [id number] PCP - General 09/30/20 documented as of this encounter
--- OUTSIDE RECORDS SUMMARY | 2025-01-11 12:29 | XMS_ITS | Clinical Summary ---
Author Organization Healthcare Address [address] [place] [address] Care Team Providers Care Lab Tester Name Role Phone Miles Ashraf MD Primary Care Provider + [phone] Allergies No known active allergies Medications hydrOXYzine [...] 6 hours as needed for pain. Under [place] law, monthly prescriptions (30 days) can be refilled at 25 days and three-month prescriptions (90 days) at 80 days. Please contact the insurance company with questions if refills are denied. 100 tablet 12/11/19 25 Active docusate sodium (Colace) 250 MG capsule Take 1 capsule by mouth daily. 60 capsule 12/11/19 25 Active ibuprofen 600 MG tablet Take 1 tablet by mouth every 6 hours as needed for mild pain. 100 tablet 12/11/19 25 Active ondansetron ODT (Zofran-ODT) 4 MG disintegrating tablet Dissolve 1 tablet on the tongue every 8 hours as needed for nausea or vomiting. 20 tablet 12/11/19 25 Active ferrous sulfate 325 (65 Fe) MG tablet Take 1 tablet by mouth daily with breakfast. 30 tablet 12/11/19 25 025 Active Problems Problem Noted Date Diagnosed Date premature rupture of membranes (PPROM) with unknown onset of labor 12/06/2024 Short cervix affecting 10/16/2024 Short cervix 10/15/2024 Eating disorder 04/23/2022 Tachycardia, unspecified 12/05/2021 Other chest pain 12/05/2021 Missed 09/11/2021 Assessment & Plan (10/02/2021 4:58 PM EDT): Diagnosed on TVUS 09/14 BHCG trend: [id number]- repeat today and weekly until <5 Depo today Assessment & Plan (09/24/2021 11:22 PM EDT): Diagnosed on TVUS 09/14 BHCG trend: [id number]-pending today Orthostatics neg Encouraged PO hydration Repeat [...] Event [facility] Delivery [address] [place] [address] Zuri Correa MD Vogel, Michael D, DO 12/07/2024 1:01 AM EDT Anesthesia Event [facility] Labor [facility] Delivery [address] [place] [address] Jose Cortez DO 12/06/2024 6:45 PM EDT - 12/09/2024 2:58 PM EDT Hospital Encounter [facility] Mother and Baby Unit [address] [place] [address] Marline Redding, Axel Storm MD Discharge Disposition: Home or Self Care 12/06/2024 Travel 10/16/2024 Travel 10/15/2024 6:21 PM EDT - 10/16/2024 8:06 PM EDT Hospital Encounter [facility] Inpatient [address] [place] [address] Jose Ramon Goodwin MD Discharge Disposition: Home [...] any time in the past 12 m [facility], were you homeless or living in a usp (including now)? No 12/09/2024 [place] Depression Scale Answer Date Recorded [place] Depression Scale Total 3 12/08/2024 The thought [...] drink first t diandra in the morning ([employer]) to steady your nerves or to get [...] HPV Vaccines (1 - 3-dose series) 2020 [id number] Vaccine (2 - season) 2024 05/22/2021 UKY-Influenza Vaccine (#1) 2025 [...] Hold for add-ons 12/08/2024 8:03 AM EDT [facility] Comment:Auto resulted. Blood Venous blood specimen / Unknown 12/08/2024 4:40 AM EDT 12/08/2024 5:07 AM EDT us Axel Patino MD LAB BLOOD ORDERABLES Yasmin l Result Performing Organization Address [facility] de Phone Number [facility] [address] [place] [address] * Hemoglobin and hematocrit, blood, AM Lab (12/08/2024 4:40 AM EDT) HGB 11.7 11.2 - 15.7 g/dL LAB HEMATOLOGY METHOD 12/08/2024 5:05 AM EDT [facility] HCT 35.3 34.0 - 45.0 % LAB HEMATOLOGY METHOD 12/08/2024 5:05 AM EDT [facility] Blood Venous blood specimen / Unknown Venipuncture / Unknown 12/08/2024 4:40 AM EDT 12/08/2024 4:55 AM EDT us Marline Redding DO LAB BLOOD ORDERABLES Final R esult Performing Organization Address [facility] Phone Number [facility] [address] [place] [address] * Epidural Block (12/07/2024 4:18 AM EDT) [...] 1-to-200,000 Medications Administered lidocaine-EPINEPHrine (XYLOCAINE W/EPI) 1.5 %-1:[id number] - Epidural 3 mL - 12/07/2024 4:27:00 [...] - AUTOMATED METHOD 12/06/2024 7:23 PM EDT [facility] Clarity, Urine Clear LAB URINALYSIS - AUTOMATED METHOD 12/06/2024 7:23 PM EDT [facility] Spec [place], Urine 1.006 1.005 - 1.030 LAB URINALYSIS - AUTOMATED METHOD 12/06/2024 7:23 PM EDT [facility] pH, Urine 7.0 5.0 - 8.0 LAB URINALYSIS - AUTOMATED METHOD 12/06/2024 7:23 PM EDT [facility] Protein, Urine Negative Negative mg/dL LAB URINALYSIS - AUTOMATED METHOD 12/06/2024 7:23 PM EDT [facility] Glucose, Urine Negative Negative mg/dL LAB URINALYSIS - AUTOMATED METHOD 12/06/2024 7:23 PM EDT [facility] Ketones, Urine 15(A) Negative mg/dL LAB URINALYSIS - AUTOMATED METHOD 12/06/2024 7:23 PM EDT [facility] Blood, Urine Negative Negative LAB URINALYSIS - AUTOMATED METHOD 12/06/2024 7:23 PM EDT [facility] Bilirubin, Urine Negative Negative LAB URINALYSIS - AUTOMATED METHOD 12/06/2024 7:23 PM EDT [facility] Urobilinogen, Urine 0.2 0.2 to 1.0 mg/dL LAB URINALYSIS - AUTOMATED METHOD 12/06/2024 7:23 PM EDT [facility] Leukocytes, Urine Negative Negative LAB URINALYSIS - AUTOMATED METHOD 12/06/2024 7:23 PM EDT [facility] Nitrite, Urine Negative Negative LAB URINALYSIS - AUTOMATED METHOD 12/06/2024 7:23 PM EDT [facility] Urine Urine specimen from urinary conduit / Unknown Non-blood Collection / Unknown 12/06/2024 7:09 PM EDT 12/06/2024 7:17 PM EDT us Marline Quezada Miladis DO LAB URINE ORDERABLES Final R esult Performing Organization Address [facility] Co de Phone Number [facility] [address] [place] [address] * Urine Culture (12/06/2024 7:09 PM EDT) Only the most recent of2 resultswithin the time period is included. [facility] Culture No growth at day 1 12/07/2024 3:07 PM EDT [facility] Urine Urine specimen from urinary conduit / Unknown Non-blood Collection / Unknown 12/06/2024 7:09 PM EDT 12/06/2024 7:27 PM EDT us Marline Quezada ftopia LAB MICROBIOLOGY - GENERAL O RDERABLES Final Result Performing Organization Address [facility] [place] [address] * Treponema Pallidum (Syphilis) Antibodies with Reflex to RPR and RPR Titer (Those with NO known Syphilis) (12/06/2024 7:06 PM EDT) Only the most recent of2 resultswithin the time period is included. [facility] Syphilis Antibody (IgG+IgM) Nonreactive Nonreactive 12/06/2024 8:52 PM EDT [facility] Comment:Nonreactive. No sero logic evidence of syphilis. No follow-up necessary unless clinically indicated (e.g., early syphilis). Blood Venous blood specimen / Unknown Venipuncture / Unknown 12/06/2024 7:06 PM EDT 12/06/2024 7:17 PM EDT Marline Filomena ftopia LAB BLOOD ORDERABLES Final R esult Performing Organization Address City/State/[facility] Co de Phone Number [facility] [address] [place] [address] * (ABNORMAL) OB Panel Pre-Eclampsia, only if hypertensive (12/06/2024 7:06 PM EDT) [facility] Uric Acid, Plasma 3.0(L) 3.1 - 7.1 mg/dL 12/06/2024 7:46 PM EDT [facility] Creatinine, Plasma 0.33(L) 0.60 - 1.10 mg/dL 12/06/2024 7:46 PM EDT [facility] ALT, Plasma 9(L) 10 - 35 U/L 12/06/2024 7:46 PM EDT [facility] AST, Plasma 19 10 - 35 U/L 12/06/2024 7:46 PM EDT [facility] LDH, Plasma 196 116 - 250 U/L 12/06/2024 7:46 PM EDT [facility] eGFRcr 153.4 mL/min/1.7 3m*2 12/06/2024 7:46 PM EDT [facility] Comment:Reported eGFRcr in m L/min/1.73m2 is based the CKD-EPI 2020 equation that does not use a race coefficient. Blood Venous blood specimen / Unknown Venipuncture / Unknown 12/06/2024 7:06 PM EDT 12/06/2024 7:17 PM EDT Marline Quezada ftopia LAB BLOOD ORDERABLES Final R esult Performing Organization Address City/State/[facility] Co de Phone Number [facility] [address] [place] [address] * Rubella Antibody IgG (12/06/2024 7:06 PM EDT) [facility] Rubella Antibody IgG Equivocal Negative 12/07/2024 10:56 AM EDT [facility] Comment: Rubella IgG Result Interpretation: [...] ORDERABLES Final R esult Performing Organization Address [facility] Co de Phone Number [facility] [address] [place] [address] * Hepatitis B surface antigen (12/06/2024 7:06 PM EDT) [facility] Hepatitis B Surf Antigen Negative Negative 12/06/2024 8:52 PM EDT [facility] Blood Venous blood specimen / Unknown Venipuncture / Unknown 12/06/2024 7:06 PM EDT 12/06/2024 7:17 PM EDT us Marline A Miladis DO LAB BLOOD ORDERABLES Final R esult Performing Organization Address City/[facility] Co de Phone Number [facility] [address] [place] [address] * (ABNORMAL) CBC and differential (12/06/2024 7:06 PM EDT) [facility] WBC Count 14.26(H) 3.70 - 10.30 10*3/uL LAB HEMATOLOGY METHOD 12/06/2024 7:24 PM EDT [facility] RBC Count 3.65(L) 3.90 - 5.20 10*6/uL LAB HEMATOLOGY METHOD 12/06/2024 7:24 PM EDT [facility] HGB 12.2 11.2 - 15.7 g/dL LAB HEMATOLOGY METHOD 12/06/2024 7:24 PM EDT [facility] HCT 34.3 34.0 - 45.0 % LAB HEMATOLOGY METHOD 12/06/2024 7:24 PM EDT [facility] Platelet Count 235 155 - 369 10*3/uL LAB HEMATOLOGY METHOD 12/06/2024 7:24 PM EDT [facility] MCV 94 79 - 98 fL LAB HEMATOLOGY METHOD 12/06/2024 7:24 PM EDT [facility] MCH 33.4(H) 26.0 - 32.0 pg LAB HEMATOLOGY METHOD 12/06/2024 7:24 PM EDT [facility] MCHC 35.6(H) 30.7 - 35.5 g/dL LAB HEMATOLOGY METHOD 12/06/2024 7:24 PM EDT [facility] RDW 12.1 11.5 - 14.5 % LAB HEMATOLOGY METHOD 12/06/2024 7:24 PM EDT [facility] MPV 10.3 8.8 - 12.5 fL LAB HEMATOLOGY METHOD 12/06/2024 7:24 PM EDT [facility] nRBC 0.0 <=0.0 per 100 WBCs LAB HEMATOLOGY METHOD 12/06/2024 7:24 PM EDT [facility] Differential Type Automated LAB HEMATOLOGY METHOD 12/06/2024 7:24 PM EDT [facility] Neutrophils % 79 % LAB HEMATOLOGY METHOD 12/06/2024 7:24 PM EDT [facility] Lymphocytes % 13 % LAB HEMATOLOGY METHOD 12/06/2024 7:24 PM EDT [facility] Monocytes % 6 % LAB HEMATOLOGY METHOD 12/06/2024 7:24 PM EDT [facility] Eosinophils % 1 % LAB HEMATOLOGY METHOD 12/06/2024 7:24 PM EDT [facility] Basophils % 0 % LAB HEMATOLOGY METHOD 12/06/2024 7:24 PM EDT [facility] Immature Granulocytes % 1 % LAB HEMATOLOGY METHOD 12/06/2024 7:24 PM EDT [facility] Neutrophils Absolute 11.23(H) 1.60 - 6.10 10*3/uL LAB HEMATOLOGY METHOD 12/06/2024 7:24 PM EDT [facility] Lymphocytes Absolute 1.85 1.20 - 3.90 10*3/uL LAB HEMATOLOGY METHOD 12/06/2024 7:24 PM EDT [facility] Monocytes Absolute 0.89 0.30 - 0.90 10*3/uL LAB HEMATOLOGY METHOD 12/06/2024 7:24 PM EDT [facility] Eosinophils Absolute 0.11 0.00 - 0.50 10*3/uL LAB HEMATOLOGY METHOD 12/06/2024 7:24 PM EDT [facility] Basophils Absolute 0.05 0.00 - 0.10 10*3/uL LAB HEMATOLOGY METHOD 12/06/2024 7:24 PM EDT [facility] Immature Granulocytes Absolute 0.13(H) 0.00 - 0.06 10*3/uL LAB HEMATOLOGY METHOD 12/06/2024 7:24 PM EDT [facility] Blood Venous blood specimen / Unknown Venipuncture / Unknown 12/06/2024 7:06 PM EDT 12/06/2024 7:17 PM EDT Narrative [facility] - 12/06/2024 7:24 PM EDT Therapeutic decision making should be based on absolute values, rather than percentages. us Marline Redding DO LAB BLOOD ORDERABLES Final R esult [facility] [address] [place] [address] * Type and Screen (12/06/2024 7:06 PM [...] 12/06/2024 7:14 PM EDT us Marline Quezada Miladis DO LAB BLOOD BANK TEST ORDERABL ES Final Result BLOOD BANK [address] [place] [id number], [place] * nonstress test (10/16/2024 3:22 PM EDT) [...] Please navigate to the Imaging tab in [employer] for review. This message has been generated by the interface. Narrative Procedure Note Dianna Mckeon MD - 10/16/2024 IMPRESSION: The OB Ultrasound you requested has been resulted. Please navigate to theImaging tab in [employer] for review. This message has been generated by theinterface. us Jose Ramon Goodwin MD IMG OB US PROCEDURES Final Re sult * (ABNORMAL) CBC (10/15/2024 9:05 PM EDT) WBC Count 13.56(H) 3.70 - 10.30 10*3/uL LAB HEMATOLOGY METHOD 10/15/2024 9:37 PM EDT [facility] RBC Count 3.33(L) 3.90 - 5.20 10*6/uL LAB HEMATOLOGY METHOD 10/15/2024 9:37 PM EDT [facility] HGB 11.1(L) 11.2 - 15.7 g/dL LAB HEMATOLOGY METHOD 10/15/2024 9:37 PM EDT [facility] HCT 31.9(L) 34.0 - 45.0 % LAB HEMATOLOGY METHOD 10/15/2024 9:37 PM EDT [facility] Platelet Count 262 155 - 369 10*3/uL LAB HEMATOLOGY METHOD 10/15/2024 9:37 PM EDT [facility] MCV 96 79 - 98 fL LAB HEMATOLOGY METHOD 10/15/2024 9:37 PM EDT [facility] MCH 33.3(H) 26.0 - 32.0 pg LAB HEMATOLOGY METHOD 10/15/2024 9:37 PM EDT [facility] MCHC 34.8 30.7 - 35.5 g/dL LAB HEMATOLOGY METHOD 10/15/2024 9:37 PM EDT [facility] RDW 12.2 11.5 - 14.5 % LAB HEMATOLOGY METHOD 10/15/2024 9:37 PM EDT [facility] MPV 9.7 8.8 - 12.5 fL LAB HEMATOLOGY METHOD 10/15/2024 9:37 PM EDT [facility] nRBC 0.0 <=0.0 per 100 WBCs LAB HEMATOLOGY METHOD 10/15/2024 9:37 PM EDT [facility] Blood Venous blood specimen / Unknown Venipuncture / Unknown 10/15/2024 9:05 PM EDT 10/15/2024 9:31 PM EDT us Jose Ramon Goodwin MD LAB BLOOD ORDERABLES Final Re sult [facility] [address] [place] [address] * (ABNORMAL) Comprehensive metabolic panel (10/15/2024 9:05 PM EDT) Glucose, Plasma 131(H) 74 - 99 mg/dL 10/15/2024 10:08 PM EDT [facility] BUN, Plasma 4(L) 7 - 21 mg/dL 10/15/2024 10:08 PM EDT [facility] Creatinine, Plasma 0.36(L) 0.60 - 1.10 mg/dL 10/15/2024 10:08 PM EDT [facility] BUN/Creatinine Ratio 11 10/15/2024 10:08 PM EDT [facility] Sodium, Plasma 139 136 - 145 mmol/L 10/15/2024 10:08 PM EDT [facility] Potassium, Plasma 3.8 3.6 - 4.9 mmol/L 10/15/2024 10:08 PM EDT [facility] Chloride, Plasma 106 97 - 107 mmol/L 10/15/2024 10:08 PM EDT [facility] CO2, Plasma 22 22 - 29 mmol/L 10/15/2024 10:08 PM EDT [facility] Anion Gap 11 6 - 16 mmol/L 10/15/2024 10:08 PM EDT [facility] Total Calcium, Plasma 9.0 8.9 - 10.2 mg/dL 10/15/2024 10:08 PM EDT [facility] Total Protein 6.6 6.3 - 7.9 g/dL 10/15/2024 10:08 PM EDT [facility] Albumin, Plasma 3.9 3.5 - 5.2 g/dL 10/15/2024 10:08 PM EDT [facility] AST, Plasma 16 10 - 35 U/L 10/15/2024 10:08 PM EDT [facility] ALT, Plasma 12 10 - 35 U/L 10/15/2024 10:08 PM EDT [facility] Alkaline Phosphatase, Plasma 86 35 - 104 U/L 10/15/2024 10:08 PM EDT [facility] Total Bilirubin, Plasma 0.3 0.2 - 1.1 mg/dL 10/15/2024 10:08 PM EDT [facility] eGFRcr 150.2 mL/min/1.7 3m*2 10/15/2024 10:08 PM EDT [facility] Comment:Reported eGFRcr in m L/min/1.73m2 is based the CKD-EPI 2020 equation that does not use a race coefficient. Blood Venous blood specimen / Unknown Venipuncture / Unknown 10/15/2024 9:05 PM EDT 10/15/2024 9:38 PM EDT us Jose Ramon Goodwin MD LAB BLOOD ORDERABLES Final Re sult Performing Organization Address [facility] Co de Phone Number [facility] [address] [place] [address] * Trichomonas Vaginalis Antigen (10/15/2024 8:36 PM EDT) Trichomonas vaginalis Antigen Result Negative Negative 10/16/2024 5:43 AM EDT [facility] Swab Vaginal structure / Unknown Non-blood Collection / Unknown 10/15/2024 8:36 PM EDT 10/15/2024 8:45 PM EDT us Jose Ramon Goodwin MD LAB MICROBIOLOGY - GENERAL OR DERABLES Final Result Performing Organization Address [facility] Phone Number [facility] [address] [place] [address] * Chlamydia trachomatis by PCR (10/15/2024 8:36 PM EDT) Chlamydia trachomatis DNA PCR Result Not Detected Not Detected 10/16/2024 3:25 PM EDT [facility] Swab Cervix uteri structure / Unknown Non-blood Collection / Unknown 10/15/2024 8:36 PM EDT 10/15/2024 8:45 PM EDT Narrative [facility] - 10/16/2024 3:25 PM EDT This test is performed by the [employer] instrument for Real Time PCR C. trachomatis and N. gonorrhea. This test is FDA approved for use with endocervical, vaginal, and urine specimens. This test is used for clinical purposes. It should not be regarded as invesigational or for research. The [facility]biology [facility] is certified under the Clinical Laboratory Improvement Amendments of 1988 (CLIA-88) as qualified to perform high complexity clinical laboratory testing. us Jose Ramon Goodwin MD LAB MICROBIOLOGY - GENERAL OR DERABLES Final Result Performing Organization Address City/[facility] Co de Phone Number [facility] [address] [place] [address] * Neisseria gonorrhea DNA by PCR (10/15/2024 8:36 PM EDT) Neisseria gonorrhea DNA PCR Result Not Detected Not Detected. 10/16/2024 3:25 PM EDT [facility] Swab Cervix uteri structure / Unknown Non-blood Collection / Unknown 10/15/2024 8:36 PM EDT 10/15/2024 8:45 PM EDT Narrative [facility] - 10/16/2024 3:25 PM EDT This test is performed by the [employer] instrument for Real Time PCR C. trachomatis and N. gonorrhea. This test is FDA approved for use with endocervical, vaginal, and urine specimens. This test is used for clinical purposes. It should not be regarded as invesigational or for research. The [facility] is certified under the Clinical Laboratory Improvement Amendments of 1988 (CLIA-88) as qualified to perform high complexity clinical laboratory testing. Jose Ramon Goodwin MD LAB MICROBIOLOGY - GENERAL OR DERABLES Final Result [facility] [address] [place] [address] * HIV 1 & 2 Antibody/Antigen Screen (09/04/2021 4:07 PM EDT) Pathologist [facility] [place] HIV 1 & 2 Antibody/Anti gen Screen Nonreactive Nonreactive 09/04/2021 7:28 PM EDT [facility] Blood Venous blood specimen / Unknown Venipuncture / Unknown 09/04/2021 4:07 PM EDT 09/04/2021 4:07 PM EDT Valentine Wallace MD LAB BLOOD ORDERABLES Final Re sult [facility] [address] [place] [address] * Hepatitis C Antibody (09/04/2021 4:07 PM EDT) Hepatitis C Antibody Negative Negative 09/04/2021 7:42 PM EDT [facility] Blood Venous blood specimen / Unknown Venipuncture / Unknown 09/04/2021 4:07 PM EDT 09/04/2021 4:07 PM EDT Valentine Wallace MD LAB BLOOD ORDERABLES Final Re sult [facility] [address] [place] [address] from Last 3 Months or Most Recently [...] updated to appropriate status: Yes Care Teams Lab Tester Relationship Specialty Start Date End Date Miles Ashraf MD [address] [place] [address] [place] [address] PCP - General 09/30/20
--- OUTSIDE RECORDS SUMMARY | 2025-01-11 12:29 | XMS_ITS | Clinical Summary ---
Author Organization [facility] Address [address] [place] [address] Care Team Providers Care Salon/Spa Manager Name Role Phone Miles Ashraf MD Primary Care Provider [phone] Allergies No known active allergies Medications acetaminophen [...] Maternal care for poor growth in third [facility] 11/08/2024 Assessment & Plan (11/24/2024 8:41 [...] [facility] [address] [phone] Clint Ponce MD Maternal care for poor growth in third trimester, single or unspecified fetus (Primary Dx) 11/24/2024 7:44 AM EDT - 11/24/2024 11:59 PM EDT Hospital Encounter [facility] [address] [place] [address] Veronika Thacker MD Maternal care for poor growth in third trimester, single or unspecified fetus Discharge Disposition: Home or Self Care 11/24/2024 Travel 11/05/2024 2:00 PM EDT Office Visit [facility] [address] [facility] [address] [place] [phone] Veronika Thacker MD Maternal care for poor growth in third trimester, single or unspecified fetus (Primary Dx) 11/05/2024 1:43 PM EDT - 11/05/2024 11:59 PM EDT Hospital Encounter [facility] [address] [place] [address] Ashlyn Barrera, IUGR (intrauterine growth [...] Procedure Name Priority Date/Time Associated Diagnosis Comments [facility] Routine 11/24/2024 8:20 AM EDT Maternal care for poor growth in third trimester, single or unspecified fetus [facility] Routine 11/05/2024 2:35 PM EDT IUGR (intrauterine growth restriction) affecting care of mother, third trimester, fetus 1 Short cervical length during in third trimester , unspecified gestational age from Last 3 Months Results * [facility] (11/24/2024 8:20 AM EDT) Only the most recent of2 resultswithin the time period is included. Anatomical Region Laterality Modality Ultrasound 11/24/2024 7:53 AM EDT Narrative 11/24/2024 8:44 AM EDT PAT NAME: TALI RAMEY [facility] REC#: [id number] DA: 2005 PAT GEND: F PAT TYPE: O EXAM PHI: [id number] REF PHYS ASHLYN BARRERA Comparison Studies The [...] EFW (oz) 12 oz EFW by: Hadlock ([id number]) Extended Cav. septi pel. tr 4.5 mm [place] 5.6 mm CM 4.7 mm 2% Nicolaides [...] Normal Heart / Thorax 3-vessel view: Normal 6-jlxyrr-cvajomq view: normal Stomach: Appears normal Kidneys: Appears [...] Recommend 37 week delivery. Coding ======= Description: 36120-91 Follow Up Ultrasound Description: 33543-16 BPP without NST Description: 26724-60 Doppler Umbilical Artery Compensation Analyst: Angela Iniguez RDMS Physician: Clint Ponce MD, FACOG Electronically signed by: Cilnt Ponce MD, FACOG at: 08:44 Procedure Note Clint Ponce MD - 11/24/2024 PAT NAME: TALI RAMEY MED REC#: [id number] DA: 2005 PAT GEND: F PAT TYPE: O EXAM PHI: [id number] REF PHYS ASHLYN BARRERA Comparison Studies The findings of this study are compared to the prior ultrasound studydated 11/05/24. Patient Status Outpatient Indication ======== IUGR. Vapes. Maternal Assessment Iwlmni501 cm Height (ft)4 ft Height (in)11 in Zdxguu22 kg Weight (lb)92 lb BMI18.55 kg/m Method ======= Transabdominal ultrasound examination ========= Lia . Number of fetuses: 1 Dating ====== GA by prior [id number] w + 5 d DEMETRIA by prior [...] GA33 w + 5 d Assigned DEMETRIA:01/07/2025 [id number] d Biometry Standard BPD74.0 mm 29w 5d <1% Hadlock OFD98.9 mm 32w 0d 14% Hunter HC278.7 mm 30w 4d <1% Hadlock Cerebellum tr40.9 mm 32w 4d 14% Hill AC274.5 mm 31w 4d 5% Hadlock Femur59.6 mm 31w 0d 1% Hadlock HC / AC1.02 EFW1,703 g 30w 5d 2% Hadlock EFW (lb)3 lb EFW (oz)12 oz EFW by:Hadlock ([id number]-FL) Extended Cav. septi pel. tr4.5 mm Vp5.6 mm CM4.7 mm 2% Nicolaides Head / Face / Neck Cephalic index0.75 5% Nicolaides Extremities / Bony Struc FL / BPD0.81 FL / HC0.21 FL / AC0.22 Other Structures GIA130 bpm General Evaluation Cardiac activity present. FHR [...] LVOT view:Normal Heart / Thorax 3-vessel view:Normal 9-nwwspt-botkalr view:normal Stomach:Appears normal Kidneys:Appears normal Bladder:Appears normal [...] 2 weeks. Recommend 37 weekdelivery. Coding ======= Description:72819-53 Follow Up Ultrasound Description:64725-07 BPP without NST Description:18672-55 Doppler Umbilical Artery Compensation Analyst: Angela Iniguez RDMS Physician: Clint Ponce MD, FACOG Electronically signed by: Clint Ponce MD, FACOG at: 08:44 us Veronika Thacker MD IMG US ORDERABLES Final Result from Last [address] [place] [address] [place] [address] Care Teams Salon/Spa Manager Relationship Specialty Start Date End Date Miles Ashraf MD [address] [place] [address] [place] [id number] PCP - General Adolescent Medicine 11/02/24
--- OUTSIDE RECORDS SUMMARY | 2025-01-11 12:29 | XMS_ITS | Encounter Summary ---
Author Organization [facility] Address [address] [place] [address] Care Team Providers Care Erp Programmer Name Role Phone Miles Ashraf MD Primary Care Provider [phone] Encounter Details Date Type Department Care Team [...] on filedocumented in this encounter Care Teams Erp Programmer Relationship Specialty Start Date End Date Miles Ashraf MD [address] [place] [address] [place] [address] PCP - General Adolescent Medicine 11/02/24 documented as of this encounter
== END 2025-01-07 23:59 ==
LOC: LAB.DROPOF 01-11 12:27
PROVIDERS: PCP Student in an Organized Health Care Education/Training Program; Visit Provider Student in an Organized Health Care Education/Training Program
DX: R30.0 Dysuria (principal)
CPT/HCPCS: 87086